=== PATIENT | female | born 1995 | race Caucasian/White ===

== ENCOUNTER 2017-04-11 01:46 | Emergency (ER) | payer OTHER ==
[~2017-04-11] VITALS: Ht 154.9 cm; Wt 85.7 kg
[2017-04-11 01:54] VITALS: BP 148/100; Ht 154.9 cm; Wt 85.7 kg
== END 2017-04-11 02:35 | disposition home or self-care (01) ==
LOC: ED 01:46
DX: J06.9 Acute upper respiratory infection, unspecified (principal)
CPT/HCPCS: 36415; 83880

== ENCOUNTER 2017-12-30 18:37 | Emergency (ER) | payer OTHER ==
[~2017-12-30] VITALS: Ht 162.6 cm; Wt 87.7 kg
[2017-12-30 18:59] VITALS: Ht 162.6 cm; Wt 87.7 kg
[2017-12-30 20:17] LABS: microscopic required? YES; urine erythrocyte NEGATIVE (NEGATIVE)
[2017-12-30 21:35] VITALS: BP 120/74
== END 2017-12-30 21:35 | disposition home or self-care (01) ==
LOC: ED 18:37
PROVIDERS: Emergency Medicine
DX: N76.0 Acute vaginitis (principal); K59.00 Constipation, unspecified
CPT/HCPCS: J1885; Q0162